=== PATIENT | male | born 1985 | race Two or more races ===

== ENCOUNTER 2017-08-23 13:52 | Emergency (ER) | payer SELFPAY ==
[~2017-08-23] VITALS: Ht 177.8 cm; Wt 72.6 kg
[2017-08-23 14:15] VITALS: BP 122/74
[2017-08-23] MEDS ORDERED: TDAP [DIPH/PERTUSSIS/TET] 0.5 ML VIAL IM ONE ×2 (16:00→16:04)
[2017-08-23] MEDS ORDERED: IBUPROFEN 600 MG TABLET PO ONE ×2 (16:00→16:04)
== END 2017-08-23 16:38 | disposition home or self-care (01) ==
LOC: ER 13:54
DX: S61.213A Laceration without foreign body of left middle finger without damage to nail, initial encounter (principal); I25.2 Old myocardial infarction; F10.10 Alcohol abuse, uncomplicated; F17.200 Nicotine dependence, unspecified, uncomplicated; W45.8XXA Other foreign body or object entering through skin, initial encounter; Y93.89 Activity, other specified; Y92.89 Other specified places as the place of occurrence of the external cause; Y99.8 Other external cause status
CPT/HCPCS: 73140; 90471; 90715; 99284; A4606; Z7610

== ENCOUNTER 2019-09-11 13:29 | Emergency (ER) | payer MEDICAID ==
[~2019-09-11] VITALS: Ht 180.3 cm; Wt 74.8 kg
--- NOTE | 2019-09-11 13:36 | NUR ---
PT BIB SELF C/O VOMITING OF BLOOD THIS MORNING, LAST ALCOHOL INTAKE 2 DAYS AGO, PT IS AAOX4, NOT IN RESPIRATORY DISTRESS, HOOKED TO MONITOR, KEPT RESTED AND COMFORTABLE, WILL CONTINUE TO MONITOR.
--- NOTE | 2019-09-11 13:59 | NUR ---
SEEN AND EXAMINED BY JOEL JOYNER
[2019-09-11] MEDS ORDERED: PANTOPRAZOLE 40 MG VIAL IV ONE (14:00)
[2019-09-11] MEDS ORDERED: IV NS 0.9% 1,000 ML BAG IV ONE (14:00)
[2019-09-11] MEDS ORDERED: ONDANSETRON HCL/PF 4 MG/2 ML VIAL IVP ONE (14:00)
[2019-09-11] MEDS ORDERED: PANTOPRAZOLE 40 MG VIAL ONE (14:08)
[2019-09-11] MEDS ORDERED: ONDANSETRON HCL/PF 4 MG/2 ML VIAL ONE (14:08)
--- NOTE | 2019-09-11 14:10 | NUR ---
PT IV LINE ESTABLISHED, BLOOD DRAWN AND SENT TO LAB.
[2019-09-11 14:11] LABS: BASOPHILS # (AUTO) 0.1 /CMM (0.0-0.2); BASOPHILS % (AUTO) 0.6 % (0.0-2.0); EOSINOPHILS % (AUTO) 2.3 % (0.0-6.0); HEMATOCRIT 47 % (39-51); HEMOGLOBIN 14.8 g/dL (13.5-17.5); LYMPHOCYTES % (AUTO) 17.5 % (20.0-44.0); MEAN CORPUSCULAR HGB CONC 32 g/dl (31.0-36.0); MEAN CORPUSCULAR VOLUME 66 fL (80-96); MONOCYTES # (AUTO) 0.9 /CMM (0.1-1.30); MONOCYTES % (AUTO) 7.7 % (2.0-12.0); NEUTROPHILS # (AUTO) 8.4 /CMM (1.8-8.9); NEUTROPHILS % (AUTO) 71.9 % (43.0-81.0); PLATELET COUNT (AUTO) 264 /CMM (150-450); RED BLOOD CELL COUNT(AUTO) 7.04 MIL/uL (4.5-6.0); WHITE BLOOD COUNT (AUTO) 11.7 K/uL (4.3-11.0)
--- NOTE | 2019-09-11 14:14 | NUR ---
[employer] AT BEDSIDE FOR XRAY.
[2019-09-11 14:18] LABS: CREATININE 1.1 mg/dL (0.6-1.3); POTASSIUM 4.1 mmol/L (3.5-5.1)
[2019-09-11 14:24] LABS: ALBUMIN 3.9 g/dL (3.4-5.0); BILIRUBIN,DIRECT 0.2 mg/dL (0.0-0.2); BILIRUBIN,TOTAL 0.7 mg/dL (0.2-1.0); TOTAL PROTEIN, SERUM 7.4 g/dL (6.4-8.2)
[2019-09-11 15:40] LABS: BAND % (MANUAL) 1 % (0.0-5.0); EOSINOPHILS % (MANUAL) 3 % (0-4); LYMPHOCYTES % (MANUAL) 18 % (16-48); MONOCYTES % (MANUAL) 11 % (0-11.0); NEUTROPHILS % (MANUAL) 67 (42-76)
--- NOTE | 2019-09-11 15:50 | NUR ---
URINE SPECIMEN COLLECTED AND SENT TO LAB.
--- NOTE | 2019-09-11 17:00 | NUR ---
ER PHLEB AT BEDSIDE FOR REPEAT TROPONIN.
[2019-09-11 17:37] VITALS: BP 138/81
--- NOTE | 2019-09-11 17:46 | NUR ---
Tierra myles in [facility] - 09/11/19 at 1809 by MIKAELA [phone] TELE
--- NOTE | 2019-09-11 18:19 | NUR ---
IV removed. Catheter intact and site benign. Pressure and 4x4 applied to site. No bleeding noted.Patient discharged to home in stable condition. Written and verbal after care instructions given. Patient verbalizes understanding of instruction.
== END 2019-09-11 18:20 | disposition home or self-care (01) ==
LOC: ER 13:33
DX: K29.21 Alcoholic gastritis with bleeding (principal); F10.10 Alcohol abuse, uncomplicated; R07.89 Other chest pain; R11.10 Vomiting, unspecified; I25.2 Old myocardial infarction; F17.200 Nicotine dependence, unspecified, uncomplicated; F11.10 Opioid abuse, uncomplicated; Y90.0 Blood alcohol level of less than 20 mg/100 ml; Z60.2 Problems related to living alone
CPT/HCPCS: 36415; 71045; 80048; 80076; 80305; 80307; 83690; 84484 ×2; 85025; 93005 ×3; 96361; 96374; 96375; 99284; C9113; J2405; J7030; G0480